=== PATIENT | female | born 1970 | race Caucasian/White ===

== ENCOUNTER → 2021-09-13 | Outpatient (CLI) | payer BC ==
[~2021-09-13] MED LIST: ACET500P3 PO; ASPI-551 PO; BUPR150T12 PO; PERCOCET PO; ZYRT10TA12 PO
== END ==
LOC: M SOG 08:33
PROVIDERS: ATTEND Orthopaedic Surgery
DX: S82.851D Displaced trimalleolar fracture of right lower leg, subsequent encounter for closed fracture with routine healing (principal); W18.30XD Fall on same level, unspecified, subsequent encounter

== ENCOUNTER → 2021-10-11 | Outpatient (CLI) | payer BC | LOC: M SOG 10:38 | PROVIDERS: ATTEND Orthopaedic Surgery | DX: S82.851D Displaced trimalleolar fracture of right lower leg, subsequent encounter for closed fracture with routine healing (principal) ==

== ENCOUNTER → 2021-11-15 | Outpatient (CLI) | payer BC | LOC: M SOG 09:08 | PROVIDERS: ATTEND Orthopaedic Surgery | DX: S82.851D Displaced trimalleolar fracture of right lower leg, subsequent encounter for closed fracture with routine healing (principal) ==

== ENCOUNTER → 2022-12-30 | Outpatient (REF) | payer BC | LOC: M SFHCWAGY 09:44 | PROVIDERS: ATTEND Nurse Practitioner Family | DX: Z12.4 Encounter for screening for malignant neoplasm of cervix (principal) | CPT/HCPCS: 87624; G0123 ==

== ENCOUNTER → 2023-09-04 | Outpatient (CLI) | payer BC | LOC: M SOG 13:51 | PROVIDERS: ATTEND Physician Assistant | DX: S82.851D Displaced trimalleolar fracture of right lower leg, subsequent encounter for closed fracture with routine healing (principal) ==

== ENCOUNTER → 2024-01-05 | Outpatient (REF) | payer BC ==
[2024-01-08 14:53] LABS: HPV APTIMA Detected (Not Detected)
== END ==
LOC: M SFHCWAGY 12:15
PROVIDERS: ATTEND Nurse Practitioner Family
DX: N73.9 Female pelvic inflammatory disease, unspecified (principal); R87.610 Atypical squamous cells of undetermined significance on cytologic smear of cervix (ASC-US); B97.7 Papillomavirus as the cause of diseases classified elsewhere
CPT/HCPCS: 87070; 87624; G0123

== ENCOUNTER → 2024-02-04 | Outpatient (REF) | payer BC | LOC: M SFHCWAGY 11:51 | PROVIDERS: ATTEND Specialist | DX: R87.619 Unspecified abnormal cytological findings in specimens from cervix uteri (principal) ==

== ENCOUNTER → 2024-02-05 | Outpatient (CLI) | payer BC | LOC: M SOG 14:21 | PROVIDERS: ATTEND Orthopaedic Surgery | DX: M19.171 Post-traumatic osteoarthritis, right ankle and foot (principal) ==

== ENCOUNTER → 2024-03-08 | Outpatient (CLI) | payer BC ==
[~2024-03-08] MED LIST changes: +ATOR40TA75 PO; +SEMA1.7P SC; +VENL75CA47 PO
== END ==
LOC: M SOG 07:28
PROVIDERS: ATTEND Physician Assistant
DX: T84.84XD Pain due to internal orthopedic prosthetic devices, implants and grafts, subsequent encounter (principal); M25.571 Pain in right ankle and joints of right foot; Z53.9 Procedure and treatment not carried out, unspecified reason

== ENCOUNTER → 2024-11-18 | Outpatient (CLI) | payer BC | LOC: M SOG 13:56 | PROVIDERS: ATTEND Physician Assistant | DX: M19.071 Primary osteoarthritis, right ankle and foot (principal); T84.84XD Pain due to internal orthopedic prosthetic devices, implants and grafts, subsequent encounter ==

== ENCOUNTER → 2025-01-25 | Outpatient (REF) | payer BC ==
[2025-01-27 20:52] LABS: HPV APTIMA Detected (Not Detected)
== END ==
LOC: M SFHCWAGY 14:07
PROVIDERS: ATTEND Nurse Practitioner Family
DX: Z12.4 Encounter for screening for malignant neoplasm of cervix (principal); R87.610 Atypical squamous cells of undetermined significance on cytologic smear of cervix (ASC-US); B97.7 Papillomavirus as the cause of diseases classified elsewhere
CPT/HCPCS: 87624; G0123